=== PATIENT | female | born 1950 | race Caucasian/White ===

== ENCOUNTER → 2016-04-17 | Outpatient (REF) | payer MEDICARE | LOC: M LAB REF 11:54 | PROVIDERS: ATTEND Physician Assistant | DX: J02.9 Acute pharyngitis, unspecified (principal) ==

== ENCOUNTER → 2016-06-29 | Outpatient (REF) | payer MEDICARE | LOC: M LAB REF 09:00 | PROVIDERS: ATTEND Physician Assistant | DX: R19.7 Diarrhea, unspecified (principal) ==

== ENCOUNTER → 2016-06-29 | Outpatient (CLI) | payer MEDICARE ==
[2016-06-29 13:02] LABS: BASO % 0.6 % (0.0-1.0); EOS # 0.1 K/mm3 (0.0-0.50); LARGE UNSTAINED CELL # 0.1 K/mm3 (0.0-0.4); LARGE UNSTAINED CELL % 2.7 % (0.0-4.0); LYMPH # 0.8 K/mm3 (1.5-4.5); LYMPH % 23.2 % (24.0-44.0); MEAN CORPUSCULAR HEMOGLOBIN 29.4 pg (27.0-33.0); MEAN CORPUSCULAR HGB CONC 32.2 g/dl (32.0-36.5); MEAN CORPUSCULAR VOLUME 91.3 fl (80.0-96.0); MONO # 0.3 K/mm3 (0.0-0.8); MONO % 9.1 % (0.0-5.0); NEUTROPHILS % 62.4 % (36.0-66.0); PLATELET COUNT, AUTOMATED 182 k/mm3 (150-450); RED CELL DISTRIBUTION WIDTH 12.1 % (11.5-14.5); WHITE BLOOD COUNT 3.3 K/mm3 (4.0-10.0)
== END ==
LOC: M WUC 09:47
PROVIDERS: ATTEND Physician Assistant
DX: R19.7 Diarrhea, unspecified (principal)

== ENCOUNTER → 2016-08-18 | Outpatient (REF) | payer MEDICARE ==
[~2016-08-18] MED LIST: ADVI200T PO; ASPI1TAB PO; EPIP0.3I2 IM; LISI10TA4 PO; OMEP20CA3 PO; OMEP40CA2 PO; TYLE325T5 PO
== END ==
LOC: M LAB REF 10:32
PROVIDERS: ATTEND Physician Assistant
DX: R10.32 Left lower quadrant pain (principal); I10 Essential (primary) hypertension

== ENCOUNTER 2016-08-25 13:06 | Observation (INO) | payer MEDICARE ==
[~2016-08-25] VITALS: Ht 157.5 cm; Wt 65.7 kg
[2016-08-25] MEDS ORDERED: OMEP40CA2 PO (13:18)
[2016-08-25] MEDS ORDERED: LISI10TA4 PO (13:18)
[2016-08-25 14:12] LABS: BASO % 0.7 % (0.0-1.0); EOS # 0.2 K/mm3 (0.0-0.50); LARGE UNSTAINED CELL # 0.2 K/mm3 (0.0-0.4); LARGE UNSTAINED CELL % 2.2 % (0.0-4.0); LYMPH # 0.8 K/mm3 (1.5-4.5); LYMPH % 12.4 % (24.0-44.0); MEAN CORPUSCULAR HEMOGLOBIN 30.3 pg (27.0-33.0); MEAN CORPUSCULAR HGB CONC 33.4 g/dl (32.0-36.5); MEAN CORPUSCULAR VOLUME 90.7 fl (80.0-96.0); MONO # 0.5 K/mm3 (0.0-0.8); MONO % 8.2 % (0.0-5.0); NEUTROPHILS # 4.8 K/mm3 (1.8-7.7); NEUTROPHILS % 73.5 % (36.0-66.0); PLATELET COUNT, AUTOMATED 180 k/mm3 (150-450); RED CELL DISTRIBUTION WIDTH 11.9 % (11.5-14.5); WHITE BLOOD COUNT 6.5 K/mm3 (4.0-10.0)
[2016-08-25 14:25] LABS: INR 1.13
[2016-08-25 14:33] LABS: ANION GAP 5 MEQ/L (8-16); BLOOD UREA NITROGEN 19 MG/DL (7-18); CALCIUM LEVEL 9.1 MG/DL (8.8-10.2); CARBON DIOXIDE LEVEL 27 MEQ/L (21-32); CHLORIDE LEVEL 105 MEQ/L (98-107); CREATININE FOR GFR 0.54 MG/DL (0.55-1.02); GLOMERULAR FILTRATION RATE > 60.0 (>45); GLUCOSE, FASTING 87 MG/DL (80-110); POTASSIUM SERUM 4.1 MEQ/L (3.5-5.1); SODIUM LEVEL 137 MEQ/L (136-145)
[2016-08-25] MEDS ORDERED: TYLE325T5 PO (14:54)
[2016-08-25] MEDS ORDERED: OMEP20CA3 PO (14:54)
[2016-08-25] MEDS ORDERED: ADVI200T PO (14:54)
[2016-08-25] MEDS ORDERED: ASPI1TAB PO (14:54)
[2016-08-25] MEDS ORDERED: EPIP0.3I2 IM (14:56)
[2016-08-25] MEDS ORDERED: ACETAMINOPHEN TAB 650MG DOSE (2X325MG) PO PRN (16:45)
[2016-08-25] MEDS ORDERED: NITROGLYCERIN 0.4 MG SUBL TABLET SL PRN (16:45)
[2016-08-25] MEDS ORDERED: ONDANSETRON 4MG/2ML VIAL (J2405) IV PRN (16:45)
[2016-08-25] MEDS ORDERED: IBUPROFEN 200 MG TAB PO PRN (16:45)
[2016-08-25] MEDS ORDERED: IBUPROFEN 800 MG TAB PO PRN (16:45)
[2016-08-25 18:25] VITALS: BP 134/75
[2016-08-25 20:11] VITALS: BP 115/66
[2016-08-25 20:33] VITALS: BP 115/66
[2016-08-25] MEDS ORDERED: LISINOPRIL 10 MG TAB PO SCH (21:00)
[2016-08-25 23:58] VITALS: BP 123/83
[2016-08-26 04:32] VITALS: BP 128/73
[2016-08-26 05:58] LABS: MEAN CORPUSCULAR HEMOGLOBIN 30.7 pg (27.0-33.0); MEAN CORPUSCULAR HGB CONC 33.4 g/dl (32.0-36.5); RED CELL DISTRIBUTION WIDTH 12.1 % (11.5-14.5); WHITE BLOOD COUNT 4.9 K/mm3 (4.0-10.0)
[2016-08-26 06:14] LABS: ALBUMIN/GLOBULIN RATIO 0.94 (1.00-1.93); ALKALINE PHOSPHATASE 269 U/L (45-117); ALT/SGPT 326 U/L (12-78); ANION GAP 7 MEQ/L (8-16); AST/SGOT 76 U/L (15-37); BILIRUBIN,TOTAL 0.3 MG/DL (0.2-1.0); BLOOD UREA NITROGEN 23 MG/DL (7-18); CALCIUM LEVEL 8.7 MG/DL (8.8-10.2); CARBON DIOXIDE LEVEL 29 MEQ/L (21-32); CHLORIDE LEVEL 106 MEQ/L (98-107); CREATININE FOR GFR 0.56 MG/DL (0.55-1.02); GLOMERULAR FILTRATION RATE > 60.0 (>45); GLUCOSE, FASTING 90 MG/DL (80-110); SODIUM LEVEL 142 MEQ/L (136-145); TOTAL PROTEIN 6.2 GM/DL (6.4-8.2)
[2016-08-26 08:00] VITALS: BP 120/75
[2016-08-26] MEDS ORDERED: ASPIRIN 81 MG ENTERIC TAB PO SCH (09:00)
[2016-08-26] MEDS ORDERED: ENOXAPARIN 40 MG/0.4 ML SYRINGE (J1650) SC SCH (09:00)
[2016-08-26] MEDS ORDERED: OMEPRAZOLE 20 MG CAP PO SCH (09:00)
[2016-08-26] MEDS ORDERED: OMEP20CA3 PO (11:17)
== END 2016-08-26 13:25 | disposition home or self-care (01) ==
LOC: EDBD 13:06 → M ED 16:25 → M ED INP 16:32 → M PCU 18:14
PROVIDERS: ADMIT Internal Medicine; ATTEND Internal Medicine Nephrology
DX: R07.9 Chest pain, unspecified (principal); I10 Essential (primary) hypertension; M06.9 Rheumatoid arthritis, unspecified; K21.9 Gastro-esophageal reflux disease without esophagitis; K44.9 Diaphragmatic hernia without obstruction or gangrene; R74.0 Nonspecific elevation of levels of transaminase and lactic acid dehydrogenase [LDH]; K76.0 Fatty (change of) liver, not elsewhere classified; Z79.82 Long term (current) use of aspirin; Z79.899 Other long term (current) drug therapy; Z91.013 Allergy to seafood; R06.02 Shortness of breath
CPT/HCPCS: 36415; 71010; 76705; 80048; 80053; 82550; 82553; 83735; 83880; 84443; 84484; 85025; 85027; 85379; 85610; 85730; 87486; 87581; 87633; 87798; 93005; 93041; 93306; 94760; 96372; 99285; G0378; J1650

== ENCOUNTER → 2016-09-12 | Outpatient (REF) | payer MEDICARE | LOC: M LAB REF 16:59 | PROVIDERS: ATTEND Nurse Practitioner Adult Health | DX: R74.8 Abnormal levels of other serum enzymes (principal) ==

== ENCOUNTER → 2016-11-08 | Outpatient (REF) | payer MEDICARE ==
[2016-11-08 17:20] LABS: ALBUMIN 3.7 GM/DL (3.2-5.2); ALBUMIN/GLOBULIN RATIO 1.19 (1.00-1.93); ALKALINE PHOSPHATASE 62 U/L (45-117); ALT/SGPT 24 U/L (12-78); ANION GAP 7 MEQ/L (8-16); AST/SGOT 10 U/L (15-37); BILIRUBIN,TOTAL 0.3 MG/DL (0.2-1.0); BLOOD UREA NITROGEN 20 MG/DL (7-18); CALCIUM LEVEL 8.9 MG/DL (8.8-10.2); CARBON DIOXIDE LEVEL 29 MEQ/L (21-32); CHLORIDE LEVEL 106 MEQ/L (98-107); CREATININE FOR GFR 0.53 MG/DL (0.55-1.02); GLOMERULAR FILTRATION RATE > 60.0 (>45); GLUCOSE, FASTING 75 MG/DL (80-110); PERCENT SATURATION 29.4 % (13.2-45.0); POTASSIUM SERUM 4.5 MEQ/L (3.5-5.1); SODIUM LEVEL 142 MEQ/L (136-145); TOTAL IRON BINDING CAPACITY 330 UG/DL (250-450); TOTAL PROTEIN 6.8 GM/DL (6.4-8.2)
[2016-11-08 17:56] LABS: EOS # 0.1 K/mm3 (0.0-0.50); LARGE UNSTAINED CELL # 0.1 K/mm3 (0.0-0.4); LARGE UNSTAINED CELL % 1.8 % (0.0-4.0); LYMPH % 24.1 % (24.0-44.0); MEAN CORPUSCULAR HEMOGLOBIN 30.2 pg (27.0-33.0); MEAN CORPUSCULAR HGB CONC 33.1 g/dl (32.0-36.5); MONO # 0.2 K/mm3 (0.0-0.8); NEUTROPHILS # 2.7 K/mm3 (1.8-7.7); NEUTROPHILS % 65.1 % (36.0-66.0); PLATELET COUNT, AUTOMATED 233 k/mm3 (150-450); RED CELL DISTRIBUTION WIDTH 12.3 % (11.5-14.5); WHITE BLOOD COUNT 4.1 K/mm3 (4.0-10.0)
[2016-11-08 20:59] LABS: ERYTHROCYTE SEDIMENTATION RATE 14 mm/hr (0-30)
[2016-11-11 00:06] LABS: Lyme Disease IgG/IgM Antibodie <0.91 ISR (0.00-0.90); Lyme Disease IgM Ab Quantitati <0.80 index (0.00-0.79)
== END ==
LOC: M LAB REF 11:43
PROVIDERS: ATTEND Internal Medicine Rheumatology
DX: M35.9 Systemic involvement of connective tissue, unspecified (principal); Z79.899 Other long term (current) drug therapy; E83.110 Hereditary hemochromatosis; R53.83 Other fatigue

== ENCOUNTER 2017-02-07 11:42 | Emergency (ER) | payer OTHER, MEDICARE ==
[~2017-02-07] VITALS: Ht 157.5 cm; Wt 65.9 kg
[2017-02-07] MEDS ORDERED: IBUP-1114 PO (11:51)
[2017-02-07] MEDS ORDERED: LIDOCAINE 2% MDV 20 ML VIAL SC ONE (13:45)
[2017-02-07] MEDS ORDERED: ADACEL/BOOSTRIX VACCINE (DIPHTH/PERTUSS/ACELL/TETANUS)0.5ML SYR (90715) IM ONE (13:45)
[2017-02-07 14:24] VITALS: BP 161/72
== END 2017-02-07 14:31 | disposition home or self-care (01) ==
LOC: M ED 11:42
DX: S61.012A Laceration without foreign body of left thumb without damage to nail, initial encounter (principal); W26.0XXA Contact with knife, initial encounter; Y92.89 Other specified places as the place of occurrence of the external cause; Y93.89 Activity, other specified; Y99.0 Civilian activity done for income or pay; I10 Essential (primary) hypertension; M06.9 Rheumatoid arthritis, unspecified; M54.5 Low back pain; Z79.899 Other long term (current) drug therapy; Z79.82 Long term (current) use of aspirin; Z91.013 Allergy to seafood

== ENCOUNTER → 2017-02-14 | Outpatient (REF) | payer MEDICARE ==
[~2017-02-14] MED LIST changes: +IBUP-1114 PO
== END ==
LOC: M LAB REF 15:48
PROVIDERS: ATTEND Nurse Practitioner Family
DX: L08.9 Local infection of the skin and subcutaneous tissue, unspecified (principal)

== ENCOUNTER 2017-02-20 11:29 | Emergency (ER) | payer OTHER, MEDICARE ==
[~2017-02-20] VITALS: Ht 158.8 cm; Wt 65.0 kg
[2017-02-20 11:30] VITALS: BP 170/94
== END 2017-02-20 13:48 | disposition home or self-care (01) ==
LOC: M ED 11:29
DX: Z48.02 Encounter for removal of sutures (principal); I10 Essential (primary) hypertension; K21.9 Gastro-esophageal reflux disease without esophagitis; Z79.899 Other long term (current) drug therapy; Z79.82 Long term (current) use of aspirin; Z91.013 Allergy to seafood; F17.210 Nicotine dependence, cigarettes, uncomplicated

== ENCOUNTER → 2017-09-02 | Outpatient (CLI) | payer MEDICARE | LOC: M WUC 10:24 | DX: S93.402A Sprain of unspecified ligament of left ankle, initial encounter (principal); S93.602A Unspecified sprain of left foot, initial encounter | CPT/HCPCS: 73610 ==

== ENCOUNTER 2018-01-21 10:39 | Emergency (ER) | payer MEDICARE ==
[2018-01-21 12:02] LABS: BASO % 0.7 % (0.0-1.0); EOS # 0.1 10^3/uL (0.0-0.50); EOS % 0.8 % (0.0-3.0); HEMATOCRIT 37.3 % (36.0-47.0); HEMOGLOBIN 12.4 g/dl (12.0-15.5); IMMATURE GRANULOCYTE % 0.5 % (0-3.0); LYMPH # 1.4 10^3/uL (1.5-4.5); LYMPH % 22.6 % (24.0-44.0); MEAN CORPUSCULAR HGB CONC 33.2 g/dl (32.0-36.5); MEAN CORPUSCULAR VOLUME 90.1 fl (80.0-96.0); MONO # 0.5 10^3/uL (0.0-0.8); MONO % 8.7 % (0.0-5.0); NEUTROPHILS # 4.1 10^3/uL (1.8-7.7); NEUTROPHILS % 66.7 % (36.0-66.0); PLATELET COUNT, AUTOMATED 199 10^3/uL (150-450); RED BLOOD COUNT 4.14 10^6/uL (4.00-5.40); RED CELL DISTRIBUTION WIDTH 11.8 % (11.5-14.5); WHITE BLOOD COUNT 6.1 10^3/uL (4.0-10.0)
[2018-01-21 12:13] LABS: PROTHROMBIN TIME 13.3 SECONDS (12.1-14.4)
[2018-01-21 12:14] LABS: PARTIAL THROMBOPLASTIN TIME 25.3 SECONDS (25.4-37.6)
[2018-01-21 13:36] LABS: ALBUMIN 3.5 GM/DL (3.2-5.2); ALBUMIN/GLOBULIN RATIO 1.09 (1.00-1.93); ALKALINE PHOSPHATASE 69 U/L (45-117); ALT/SGPT 30 U/L (12-78); ANION GAP 7 MEQ/L (8-16); AST/SGOT 18 U/L (7-37); BILIRUBIN,DIRECT 0.1 MG/DL (0.0-0.2); BILIRUBIN,TOTAL 0.3 MG/DL (0.2-1.0); BLOOD UREA NITROGEN 17 MG/DL (7-18); CALCIUM LEVEL 9.1 MG/DL (8.8-10.2); CARBON DIOXIDE LEVEL 26 MEQ/L (21-32); CHLORIDE LEVEL 105 MEQ/L (98-107); CPK CREATINE PHOSPHOKINASE 47 U/L (26-192); CREATININE FOR GFR 0.63 MG/DL (0.55-1.30); FREE T4 0.96 NG/DL (0.76-1.46); GLOMERULAR FILTRATION RATE > 60.0 (>45); GLUCOSE, FASTING 83 MG/DL (70-100); LIPASE 87 U/L (73-393); MB/CK RELATIVE INDEX 2.55 (< OR =4); POTASSIUM SERUM 4.2 MEQ/L (3.5-5.1); SODIUM LEVEL 138 MEQ/L (136-145); TOTAL PROTEIN 6.7 GM/DL (6.4-8.2); TROPONIN I < 0.02 NG/ML (< 0.10)
== END 2018-01-21 14:04 | disposition home or self-care (01) ==
LOC: M ED 10:39
DX: T78.3XXA Angioneurotic edema, initial encounter (principal); I10 Essential (primary) hypertension; Z79.899 Other long term (current) drug therapy; Z79.82 Long term (current) use of aspirin; Z91.013 Allergy to seafood
CPT/HCPCS: 71045

== ENCOUNTER → 2019-04-04 | Outpatient (CLI) | payer MEDICARE ==
[~2019-04-04] MED LIST changes: +AMLO5TAB6 PO; -ASPI1TAB PO; +ASPI81TA26 PO; +OMEP1CAP73 PO; -OMEP20CA3 PO; -OMEP40CA2 PO; +OMEP40CA97 PO; +[UNRECOGNIZED DRUG - OTHER]
--- NOTE | 2019-04-04 16:10 | REP ---
CHEST, TWO VIEWS: Two views of the chest are performed and compared to prior single view chest 01/21/2018. Mild infiltrate is seen in the left upper lobe. Right lung is clear. Heart is normal in size. There is calcification of the thoracic aorta. Mediastinal silhouette is unchanged. There are degenerative changes of the spine. IMPRESSION: Mild left upper lobe infiltrate. Electronically Signed by Sravan Busch MD 04/09/2019 09:46 A
== END ==
LOC: M WUC 14:18
PROVIDERS: ATTEND Nurse Practitioner Family
DX: R91.8 Other nonspecific abnormal finding of lung field (principal); R05 Cough

== ENCOUNTER → 2019-08-14 | Outpatient (REF) | payer MEDICARE | LOC: M LAB REF 17:02 | PROVIDERS: ATTEND Nurse Practitioner Adult Health | DX: R20.2 Paresthesia of skin (principal) ==

== ENCOUNTER → 2019-10-02 | Outpatient (CLI) | payer MEDICARE ==
[~2019-10-02] MED LIST changes: +AMLO1TAB24 PO; -AMLO5TAB6 PO
[2019-10-03 19:09] LABS: Lyme Disease IgG/IgM Antibodie <0.91 ISR (0.00-0.90); Lyme Disease IgM Ab Quantitati <0.80 index (0.00-0.79)
== END ==
LOC: M WUC 08:30
PROVIDERS: ATTEND Nurse Practitioner Family
DX: L24.89 Irritant contact dermatitis due to other agents (principal)

== ENCOUNTER → 2020-08-26 | Outpatient (CLI) | payer MEDICARE ==
[~2020-08-26] MED LIST changes: +LISI10TA22 PO; -LISI10TA4 PO
--- NOTE | 2020-08-26 16:06 | REP ---
INDICATION: CALCIFIC TENDINITIS OF LEFT SHOULDER. COMPARISON: None TECHNIQUE: Three views FINDINGS: The glenohumeral and acromioclavicular joints are within normal limits. There is no acute fracture or destructive osseous lesion. Calcifications are seen in the soft tissues lateral to the greater tuberosity of the humerus IMPRESSION: Soft tissue calcifications as described above possibly secondary to chronic calcific subdeltoid bursitis. Chronic calcific supraspinatus tendinitis is also a consideration. <Electronically signed by Gee Camarena > 08/26/20 [id number]
== END ==
LOC: M SOG 15:20
PROVIDERS: ATTEND Orthopaedic Surgery Sports Medicine
DX: M75.52 Bursitis of left shoulder (principal); M79.89 Other specified soft tissue disorders

== ENCOUNTER → 2021-07-06 | Outpatient (REF) | payer MEDICARE ==
[~2021-07-06] MED LIST changes: +OMEP40CA4 PO; -OMEP40CA97 PO
== END ==
LOC: M LAB REF 16:08
PROVIDERS: ATTEND Physician Assistant Medical
DX: R50.9 Fever, unspecified (principal)

== ENCOUNTER → 2022-01-12 | Outpatient (REF) | payer MEDICARE | LOC: M LAB REF 12:10 | PROVIDERS: ATTEND Nurse Practitioner Adult Health | DX: R41.81 Age-related cognitive decline (principal) ==

== ENCOUNTER → 2022-01-13 | Outpatient (REF) | payer MEDICARE | LOC: M LAB REF 19:13 | PROVIDERS: ATTEND Nurse Practitioner Adult Health | DX: R41.81 Age-related cognitive decline (principal); M54.50 Low back pain, unspecified; Z79.899 Other long term (current) drug therapy ==

== ENCOUNTER → 2022-04-25 | Outpatient (REF) | payer MEDICARE ==
[2022-04-25 17:56] LABS: PERCENT SATURATION 33.5 % (13.2-45.0)
== END ==
LOC: M LAB REF 15:58
PROVIDERS: ATTEND Internal Medicine
DX: R53.83 Other fatigue (principal)

== ENCOUNTER → 2022-05-03 | Outpatient (CLI) | payer MEDICARE | LOC: M PLAIMG 09:24 | PROVIDERS: ATTEND Internal Medicine | DX: G93.0 Cerebral cysts (principal); F03.90 Unspecified dementia, unspecified severity, without behavioral disturbance, psychotic disturbance, mood disturbance, and anxiety; R51.9 Headache, unspecified ==

== ENCOUNTER → 2022-06-01 | Outpatient (CLI) | payer MEDICARE | LOC: M PLARAD 08:30 | PROVIDERS: ATTEND Internal Medicine | DX: G93.0 Cerebral cysts (principal) ==

== ENCOUNTER 2022-06-28 09:24 | Day surgery (SDC) | payer MEDICARE ==
[~2022-06-28] VITALS: Ht 157.5 cm; Wt 68.9 kg
[~2022-06-28 09:24] MED LIST changes: +ACE65ERTAB PO; +AMLO1TAB25 PO; +ATOR1TAB21 PO; +CENT1TAB PO; +FAMO1TAB11 PO; +HYDR12.55 PO; +LIDOCAINE 2% 100MG/5ML SDV (FOR ANES.) As Ordered ONE; +NS 1,000 ML IV ONE; +OMEP40CA5 PO; +propofoL 200 MG/20 ML VIAL As Ordered ONE
[2022-06-28 12:51] VITALS: BP 142/85
== END 2022-06-28 12:54 | disposition home or self-care (01) ==
LOC: M OPP 09:24
PROVIDERS: ATTEND Internal Medicine Gastroenterology
DX: Z12.11 Encounter for screening for malignant neoplasm of colon (principal); Z86.010 Personal history of colon polyps; K64.0 First degree hemorrhoids; K57.30 Diverticulosis of large intestine without perforation or abscess without bleeding; K44.9 Diaphragmatic hernia without obstruction or gangrene; K29.70 Gastritis, unspecified, without bleeding; Z79.02 Long term (current) use of antithrombotics/antiplatelets; Z79.899 Other long term (current) drug therapy; Z91.013 Allergy to seafood; Z87.891 Personal history of nicotine dependence
CPT/HCPCS: 43239; 88305; G0105

== ENCOUNTER → 2023-03-21 | Outpatient (CLI) | payer MEDICARE ==
[~2023-03-21] MED LIST changes: -LIDOCAINE 2% 100MG/5ML SDV (FOR ANES.) As Ordered ONE; -NS 1,000 ML IV ONE; -propofoL 200 MG/20 ML VIAL As Ordered ONE
== END ==
LOC: M RAD 11:18
PROVIDERS: ATTEND Physician Assistant
DX: M79.662 Pain in left lower leg (principal); M25.462 Effusion, left knee

== ENCOUNTER → 2023-06-13 | Outpatient (REF) | payer MEDICARE | LOC: M LAB REF 13:07 | PROVIDERS: ATTEND Internal Medicine | DX: F03.90 Unspecified dementia, unspecified severity, without behavioral disturbance, psychotic disturbance, mood disturbance, and anxiety (principal) ==